=== PATIENT | female | born 1995 | race Caucasian/White ===

== ENCOUNTER → 2022-02-21 | Outpatient (CLI) | payer SELFPAY ==
[~2022-02-21] VITALS: Ht 165 cm; Wt 65.0 kg
[~2022-02-21] MED LIST: PRENATAL TABLET PO
[2022-02-21 18:10] VITALS: BP 106/64; PULSE 73; TEMP 97.6
--- NOTE | 2022-02-21 18:48 | NUR ---
180-PT ARRIVED TO L&D IN STABLE CONDITION. PT AMBULATED TO ROOM 6 ACCOMPANIED BY SIGNIFICANT OTHER. PT CAME TO UNIT BECAUSE SHE HAS NOT FELT ANY MOVEMENT THIS ENTIRE AND HER DOCTOR IN [facility] STATED SHE SHOULD BE FEELING MOVEMENT AT THIS STAGE. PT IS CURRENTLY RECEIVING CARE IN [facility] AND WILL BE RETURNING AT NEXT MONTH. PT DENIES VAGINAL BLEEDING, CONTRACTIONS, AND LEAKING OF FLUID. RN USED DOPPLER TO ASSESS FHR. FHR IN THE 140S AT THIS TIME. PT FEELS LESS ANXIOUS NOW THAT SHE HEARD FHR. VS WNL. [id number] ROLES NOTIIED. UPDATED CARE PLAN. POC EXPLAINED TO PT. LABOR PRECAUTIONS EXPLAINED TO PT. PT VERBALIZED UNDERSTANDING.
--- NOTE | 2022-02-21 18:50 | NUR ---
PT GIVEN WRITTEN AND VEBAL DISCHARGE INSTRUCTIONS. PT VERBALIZED UNDERSTANDING. PT AND HER BOYFRIEND AMB OUT TO THEIR CAR.
== END ==
LOC: LDRO 17:54
DX: O36.8190 Decreased fetal movements, unspecified trimester, not applicable or unspecified (principal); Z3A.00 Weeks of gestation of pregnancy not specified